=== PATIENT | female | born 2000 | race Caucasian/White ===

== ENCOUNTER 2025-01-04 11:19 | Emergency (ER) | payer OTHER, SELFPAY ==
[2025-01-04] VITALS (57 sets, daily range): BP systolic 119–140; BP diastolic 69–86; PULSE 100–150; TEMP 36.7–37.1; O2SAT 89–100; BMI 33.1
--- NOTE | 2025-01-04 11:30 | ECG_ITS ---
[facility] Test Date: 2025-01-04 Pat Name: ERIK BEDOYA Department: Room: - Gender: Female [employer]: : 2000 Requested By: [id number] Order Number: [id number] [place] MD: TATE MACHADO M.D. Measurements Intervals [place] Rate: 117 P: 36 AK: 144 QRS: 71 QRSD: 76 T: 56 QT: 296 QTc: 366 Interpretive Statements Sinus tachycardia Otherwise normal ECG Compared to ECG 01/11/2023 08:15:11 Heart rate has increased Electronically Signed On 01-04-2025 12:45:45 EDT by TATE MACHADO M.D.
[2025-01-04 11:53] LABS: Hematocrit 29.5 % (36.0-48.0); Hemoglobin 8.7 g/dL (12.0-16.0); Mean Corpuscular HGB Conc 29.5 g/dL (29.9-35.2); Mean Corpuscular Hemoglobin 22.4 pg (26.7-34.0); Mean Platelet Volume 8.3 fL (9.5-13.5); Platelet Count 402 10^3/uL (150-450); Red Blood Count 3.88 10^6/uL (4.20-5.40); Red Cell Distribution Width 15.1 % (11.0-15.0); White Blood Count 21.2 10^3/uL (4.0-11.0)
[2025-01-04] MEDS: 0.9 % SODIUM CHLORIDE 1,000 ML 1000 ML IV ×2 (11:59→15:35)
[2025-01-04 12:07] LABS: D Dimer 0.43 mg/L FEU (<=0.59)
[2025-01-04 12:10] LABS: Alanine Aminotransferase 31 U/L (14-59); Albumin Globulin Ratio 0.8; Albumin Level 3.2 g/dL (3.4-5.0); Alkaline Phosphatase 88 U/L (46-116); Anion Gap 14.1; Aspartate Amino Transferase 13 U/L (15-37); BUN Creatinine Ratio 16.2; Bilirubin Total 0.3 mg/dL (0.2-1.0); Calcium 8.8 mg/dL (8.5-10.1); Carbon Dioxide 25.8 mmol/L (21.0-32.0); Chloride 100 mmol/L (98-107); Estimated GFR (African America >60 (>=60 mL/min/1.73m^2); Estimated GFR (Non-African Ame >60 (>=60 mL/min/1.73m^2); Globulin 3.9 g/dL; Glucose 99 mg/dL (74-106); HCG Qualitative NEGATIVE (NEGATIVE); Internal Control Within Normal Limits; Potassium 3.9 mmol/L (3.5-5.1); Sodium 136 mmol/L (136-145); Total Protein 7.1 g/dL (6.4-8.2)
[2025-01-04 12:14] LABS: Troponin I High Sensitivity 205.3 pg/mL (4.0-51.3)
[2025-01-04 12:17] LABS: Band Neutrophils Absolute 2.1 10^3/uL (0.0-0.3); Lymphocytes Absolute Manual 3.81 10^3/uL (1.20-3.80); Metamyelocytes Absolute Manual 0.21; Monocytes Absolute Manual 1.48 10^3/uL (0.30-0.80); Segmented Neut Absolute Manual 13.56 10^3/uL (1.4-6.5)
[2025-01-04 12:18] LABS: Anisocytosis 1+
[2025-01-04 12:23] LABS: Lactate/Lactic Acid 1.9 mmol/L (0.4-2.0)
[2025-01-04 12:56] LABS: Influenza Virus A Antigen Negative; Influenza Virus B Antigen Negative; Internal Control Within Normal Limits; SARS-CoV-2 Ag NEGATIVE (NEGATIVE)
--- NOTE | 2025-01-04 13:29 | ED_ITS ---
HPI - Chest Pain General Chief Complaint: Chest Pain Stated Complaint: SOB CHEST PAINS Time Seen by Provider: 01/04/25 11:30 Source: patient Mode of arrival: walk-in Limitations: no limitations History of Present Illness HPI narrative: The patient is a 24-year-old female who have a history of workup for possible Crohn's or ulcerative colitis, she is coming to the ER today with a chest pain that started this morning, according to her she has been having elevated heart rate that is recorded to her iWatch yesterday multiple times, but today she started having pain with this elevated heart rate, the pain is in the upper chest nonradiating associated with no nausea or vomiting but there is dizziness The patient denies any long travel and immobilization She denies any cough fever she also denies any nausea vomiting or any diarrhea She had no family history of coronary artery disease or any cardiac events and she denies any drug use The patient denies any abdominal pain any rash Related Data Home Medications ?Medication ?Instructions ?Recorded ?Confirmed aripiprazole 10 mg tablet 10 mg PO DAILY 01/04/25 01/04/25 buspirone 15 mg tablet 15 mg PO BID 01/04/25 01/04/25 lamotrigine 100 mg tablet 100 mg PO DAILY 01/04/25 01/04/25 mesalamine 1.2 gram tablet,delayed 4.8 g PO DAILY 01/04/25 01/04/25 release prednisone 5 mg tablet 5 mg PO DAILY 01/04/25 01/04/25 sertraline 100 mg tablet 100 mg PO DAILY 01/04/25 01/04/25 Allergies Allergy/AdvReac Type Severity Reaction Status Date / Time No Known Drug Allergies Allergy Verified 01/04/25 11:26 Review of Systems ROS Status of ROS 10 or more systems reviewed and unremark able except as noted in history and below PFSH PFSH Social History Little interest or pleasure in doing things: not at all Feeling down, depressed, or hopeless: not at all Exam Narrative Exam Narrative: Nurses notes and vital signs reviewed and patient is not hypoxic. General: Well-appearing and in no apparent distress. Skin: Warm, dry, no pallor noted. No rash. Head: Normocephalic, atraumatic. Neck: Supple, non-tender. Eye: Pupils are equal, round and EOMI. No scleral icterus. Ears, Nose, Mouth, and Throat: TM are clear, no nasal mucosal hypertrophy. Oral mucosa is moist, no posterior oropharynx erythema, uvula is mid-line Cardiovascular: Regular Rate and Rhythm without murmur, gallop or rub. Respiratory: No accessory muscle use or respiratory distress. Lungs are clear to auscultation, no wheezing, rales or rhonchi Chest Wall: no tenderness Back: No midline thoracic or lumbar vertebral tenderness. No CVA tenderness Musculoskeletal: normal ROM, no calf or popliteal tenderness, no lower extremity edema/swelling GI: Abdomen is soft, non-distended. Normal bowel sounds. No masses appreciated. No tenderness to palpation. No rebound, guarding, or rigidity noted. Neurological: A&O x4. No cranial nerve dysfunction observed. Constitutional Vital Signs, click to edit/add: Last Vital Signs Temp 98.8 F 01/04/25 11:23 Pulse 108 H 01/04/25 16:46 Resp 17 01/04/25 16:46 BP 121/78 01/04/25 16:46 Pulse Ox 100 01/04/25 15:20 O2 Del Method Room Air 01/04/25 11:23 Course Vital Signs Vital signs: Vital Signs Temperature 98.8 F 01/04/25 11:23 Pulse Rate 129 H 01/04/25 11:23 Respiratory Rate 20 01/04/25 11:23 Blood Pressure 129/82 01/04/25 11:23 Pulse Oximetry 97 01/04/25 11:23 Oxygen Delivery Method Room Air 01/04/25 11:23 Temperature 98.8 F 01/04/25 11:23 Pulse Rate 108 H 01/04/25 16:46 Respiratory Rate 17 01/04/25 16:46 Blood Pressure 121/78 01/04/25 16:46 Pulse Oximetry 100 01/04/25 15:20 Oxygen Delivery Method Room Air 01/04/25 11:23 MDM - Chest Pain MDM Narrative Medical decision making narrative: The patient presenting to us with a sinus tachycardia Her EKG upon arrival showing sinus tachycardia with a heart rate of [address] elevation or depression The patient CBC shows leukocytosis of 21--- lactic acid is 1.9 The patient chemistry showed no acute pathology Hemoglobin is 8.7 and the patient denies having history of anemia Patient troponin was found to be elevated at 200 and after almost 2 hours the patient had another troponin that shows elevation of 304 CT angio of the chest showed that the patient have no acute pathology The patient case was discussed with Dr. Mast and the patient already was started on IV fluid and I added aspirin Dr. Mast recommended the patient to be transferred to [facility] for further evaluation of myocarditis Blood culture was obtained that the patient had a COVID and flu test both came negative The patient denies any source of infection she does not have any abdominal pain at the moment and her abdominal exam is benign Lab Data Labs: Lab Results 01/04/25 01/04/25 01/04/25 Range/Units 11:44 12:36 13:37 WBC 21.2 H (4.0-11.0) 10^3/uL RBC 3.88 L (4.20-5.40) 10^6/uL Hgb 8.7 L (12.0-16.0) g/dL Hct 29.5 L (36.0-48.0) % MCV 76.0 L (81.0-99.0) fL MCH 22.4 L (26.7-34.0) pg MCHC 29.5 L (29.9-35.2) g/dL RDW 15.1 H (11.0-15.0) % Plt Count 402 (150-450) 10^3/uL MPV 8.3 L (9.5-13.5) fL Seg Neuts % (Manual) 64.0 (43.0-75.0) Band Neutrophils % 10.0 H (0-5) % Lymphocytes % (Manual) 18.0 L (20.5-60.0) % Monocytes % (Manual) 7.0 (1.7-12.0) % Eosinophils % (Manual) 0.0 L (0.9-7.0) % Basophils % (Manual) 0.0 L (0.2-2.0) % Metamyelocytes % 1.0 Neutrophils # (Manual) 13.56 H (1.4-6.5) 10^3/uL Band Neutrophils # 2.1 H (0.0-0.3) 10^3/uL Lymphocytes # (Manual) 3.81 H (1.20-3.80) 10^3/uL Monocytes # (Manual) 1.48 H (0.30-0.80) 10^3/uL Eosinophils # (Manual) 0.00 (0.00-0.70) 10^3/uL Basophils # (Manual) 0.00 (0.00-0.10) 10^3/uL Metamyelocytes # 0.21 Anisocytosis 1+ D-Dimer 0.43 (<=0.59) mg/L FEU Sodium 136 (136-145) mmol/L Potassium 3.9 (3.5-5.1) mmol/L Chloride 100 (98-107) mmol/L Carbon Dioxide 25.8 (21.0-32.0) mmol/L Anion Gap 14.1 BUN 13.0 (7.0-18.0) mg/dL Creatinine 0.80 (0.55-1.02) mg/dL Est GFR ( Amer) >60 (>=60 mL/min/1.73m^2) Est GFR (Non-Af Amer) >60 (>=60 mL/min/1.73m^2) BUN/Creatinine Ratio 16.2 Glucose 99 (74-106) mg/dL Lactate 1.9 (0.4-2.0) mmol/L Calcium 8.8 (8.5-10.1) mg/dL Magnesium 2.0 (1.8-2.4) mg/dL Total Bilirubin 0.3 (0.2-1.0) mg/dL AST 13 L (15-37) U/L ALT 31 (14-59) U/L Alkaline Phosphatase 88 (46-116) U/L Troponin I High Sens 205.3 H* 304.1 H* (4.0-51.3) pg/mL Total Protein 7.1 (6.4-8.2) g/dL Albumin 3.2 L (3.4-5.0) g/dL Globulin 3.9 g/dL Albumin/Globulin Ratio 0.8 Serum HCG, Qual Negative (NEGATIVE) Urine Color (YELLOW) Urine Clarity (CLEAR) Urine pH (5.0-9.0) Ur Specific [place] (1.005-1.025) Urine Protein (NEG/TRACE) mg/dL Urine Glucose (UA) (NEGATIVE) mg/dL Urine Ketones (NEGATIVE) mg/dL Urine Occult Blood (NEGATIVE) Urine Nitrite (NEGATIVE) Urine Bilirubin (NEGATIVE) Urine Urobilinogen (0.2-1.0) EU/dL Ur Leukocyte Esterase (NEGATIVE) Urine Opiates Screen (NEGATIVE) Ur Buprenorphine Scrn (NEGATIVE) Ur Oxycodone Screen (NEGATIVE) Urine Methadone Screen (NEGATIVE) Ur Barbiturates Screen (NEGATIVE) U Tricyclic Antidepress (NEGATIVE) Ur Phencyclidine Scrn (NEGATIVE) Ur Amphetamines Screen (NEGATIVE) U Methamphetamines Scrn (NEGATIVE) U Benzodiazepines Scrn (NEGATIVE) Urine Cocaine Screen (NEGATIVE) U Cannabinoids Screen (NEGATIVE) Influenza Type A Ag Negative Influenza Type B Ag Negative SARS-CoV-2 Ag (CV2AG) Negative (NEGATIVE) 01/04/25 Range/Units 14:21 WBC (4.0-11.0) 10^3/uL RBC (4.20-5.40) 10^6/uL Hgb (12.0-16.0) g/dL Hct (36.0-48.0) % MCV (81.0-99.0) fL MCH (26.7-34.0) pg MCHC (29.9-35.2) g/dL RDW (11.0-15.0) % Plt Count (150-450) 10^3/uL MPV (9.5-13.5) fL Seg Neuts % (Manual) (43.0-75.0) Band Neutrophils % (0-5) % Lymphocytes % (Manual) (20.5-60.0) % Monocytes % (Manual) (1.7-12.0) % Eosinophils % (Manual) (0.9-7.0) % Basophils % (Manual) (0.2-2.0) % Metamyelocytes % Neutrophils # (Manual) (1.4-6.5) 10^3/uL Band Neutrophils # (0.0-0.3) 10^3/uL Lymphocytes # (Manual) (1.20-3.80) 10^3/uL Monocytes # (Manual) (0.30-0.80) 10^3/uL Eosinophils # (Manual) (0.00-0.70) 10^3/uL Basophils # (Manual) (0.00-0.10) 10^3/uL Metamyelocytes # Anisocytosis D-Dimer (<=0.59) mg/L FEU Sodium (136-145) mmol/L Potassium (3.5-5.1) mmol/L Chloride (98-107) mmol/L Carbon Dioxide (21.0-32.0) mmol/L Anion Gap BUN (7.0-18.0) mg/dL Creatinine (0.55-1.02) mg/dL Est GFR ( Amer) (>=60 mL/min/1.73m^2) Est GFR (Non-Af Amer) (>=60 mL/min/1.73m^2) BUN/Creatinine Ratio Glucose (74-106) mg/dL Lactate (0.4-2.0) mmol/L Calcium (8.5-10.1) mg/dL Magnesium (1.8-2.4) mg/dL Total Bilirubin (0.2-1.0) mg/dL AST (15-37) U/L ALT (14-59) U/L Alkaline Phosphatase (46-116) U/L Troponin I High Sens (4.0-51.3) pg/mL Total Protein (6.4-8.2) g/dL Albumin (3.4-5.0) g/dL Globulin g/dL Albumin/Globulin Ratio Serum HCG, Qual (NEGATIVE) Urine Color Lt. yellow (YELLOW) Urine Clarity Clear (CLEAR) Urine pH 6.0 (5.0-9.0) Ur Specific [place] <=1.005 A (1.005-1.025) Urine Protein Negative (NEG/TRACE) mg/dL Urine Glucose (UA) Negative (NEGATIVE) mg/dL Urine Ketones Negative (NEGATIVE) mg/dL Urine Occult Blood Negative (NEGATIVE) Urine Nitrite Negative (NEGATIVE) Urine Bilirubin Negative (NEGATIVE) Urine Urobilinogen 0.2 (0.2-1.0) EU/dL Ur Leukocyte Esterase Negative (NEGATIVE) Urine Opiates Screen Negative (NEGATIVE) Ur Buprenorphine Scrn Negative (NEGATIVE) Ur Oxycodone Screen Negative (NEGATIVE) Urine Methadone Screen Negative (NEGATIVE) Ur Barbiturates Screen Negative (NEGATIVE) U Tricyclic Antidepress Negative (NEGATIVE) Ur Phencyclidine Scrn Negative (NEGATIVE) Ur Amphetamines Screen Negative (NEGATIVE) U Methamphetamines Scrn Negative (NEGATIVE) U Benzodiazepines Scrn Negative (NEGATIVE) Urine Cocaine Screen Negative (NEGATIVE) U Cannabinoids Screen Positive A (NEGATIVE) Influenza Type A Ag Influenza Type B Ag SARS-CoV-2 Ag (CV2AG) (NEGATIVE) Discharge Plan Discharge Chief Complaint: Chest Pain Clinical Impression: Chest pain, Elevated troponin, Myocarditis Prescriptions / Home Meds: No Action aripiprazole 10 mg tablet 10 mg PO DAILY buspirone 15 mg tablet 15 mg PO BID lamotrigine 100 mg tablet 100 mg PO DAILY mesalamine 1.2 gram tablet,delayed release (DR/EC) 4.8 g PO DAILY prednisone 5 mg tablet 5 mg PO DAILY sertraline 100 mg tablet 100 mg PO DAILY Print Language: Yoruba Referrals: Magi Meyer MD [Primary Care Provider] - 1 week
[2025-01-04 14:06] LABS: Troponin I High Sensitivity 304.1 pg/mL (4.0-51.3)
[2025-01-04 14:32] LABS: Bilirubin Urine NEGATIVE (NEGATIVE); Blood Urine NEGATIVE (NEGATIVE); Clarity Urine CLEAR (CLEAR); Color Urine LT. YELLOW (YELLOW); Glucose Urine UA NEGATIVE (NEGATIVE); Ketones Urine NEGATIVE (NEGATIVE); Leukocyte Esterase Urine NEGATIVE (NEGATIVE); Nitrite Urine NEGATIVE (NEGATIVE); Protein Urine NEGATIVE (NEG/TRACE); Specific Gravity Urine <=1.005 (1.005-1.025); Urobilinogen Urine 0.2 EU/dL (0.2-1.0)
[2025-01-04 14:33] LABS: Urine Microscopic Indicated NO
[2025-01-04 14:42] LABS: Amphetamine Screen Urine NEGATIVE (NEGATIVE); Barbiturates Screen Urine NEGATIVE (NEGATIVE); Benzodiazepines Screen Urine NEGATIVE (NEGATIVE); Buprenorphine Screen Urine NEGATIVE (NEGATIVE); Cannabinoid Screen Urine POSITIVE (NEGATIVE); Cocaine Screen Urine NEGATIVE (NEGATIVE); Methadone Screen Urine NEGATIVE (NEGATIVE); Methamphetamines Screen Urine NEGATIVE (NEGATIVE); Opiate Screen Urine NEGATIVE (NEGATIVE); Oxycodone Screen Urine NEGATIVE (NEGATIVE); Phencyclidine Screen Urine NEGATIVE (NEGATIVE); Tricyclic Antidepressant Urine NEGATIVE (NEGATIVE)
[2025-01-04] MEDS: ASPIRIN 81 MG TAB.CHEW 324 MG PO (15:34)
--- NOTE | 2025-01-04 18:59 | PC.NURSE ---
i walked into this room awake and alert sitting upright on the bed. i introduced myself to patient, this patient is aware that she is waiting of transport, they should arrive around 8:30 pm tonight to take you to [facility] this patient is chest pain free now and this patient voices no concerns and shows no signs of distress
--- NOTE | 2025-01-04 20:01 | PC.NURSE ---
this patient awake and alert lying on her left side on the bed and texting on her cell phone. this patient voices no concerns and shows no signs of distress
--- NOTE | 2025-01-04 21:07 | PC.NURSE ---
report called to [facility], spoke with Tanna SARKAR with patient report I also gave [facility] crew patient report
== END 2025-01-04 21:09 | disposition short-term general hospital (02) ==
PROVIDERS: Emergency Provider Emergency Medicine; PCP Internal Medicine
DX: I51.4 Myocarditis, unspecified (principal); R07.9 Chest pain, unspecified; R06.02 Shortness of breath; R79.89 Other specified abnormal findings of blood chemistry
CPT/HCPCS: 36415; 71275; 80053; 80307; 81003; 83605; 83735; 84484; 84703; 85007; 85027; 85378; 87040; 87804; 87811; 93005; 96360; 96361; 99285; Q9967